=== PATIENT | female | born 1955 | race Caucasian/White ===

== ENCOUNTER 2016-07-30 11:11 | Outpatient (CLI) | payer BC ==
[2016-07-30 13:13] LABS: #Basophils 0.1 thou/uL (0.0-0.2); #Eosinphils 0.1 thou/uL (0.0-0.7); #Lymphocytes 2.1 thou/uL (1.20-3.40); #Monocytes 0.6 thou/uL (0.11-0.59); #Neutrophils 2.5 thou/uL (1.40-6.50); %Basophils 1.7 % (0.0-1.0); %Eosinophils 2.3 % (0.0-10.0); %Lymphocytes 38.8 % (21.0-51.0); Hematocrit 41.5 % (36.0-47.0); Mean Platelet Volume 7.7 fL (7.4-10.4); Red Blood Cell (RBC) Count 4.34 mill/uL (4.20-5.40); White Blood Cell (WBC) Count 5.3 thou/uL (4.8-10.8)
[2016-07-30 13:51] LABS: ALT (SGPT) 25 U/L (0-55); AST (SGOT) 27 U/L (5-34); Alkaline Phosphatase 68 U/L (40-150); Anion Gap 13 mmol/L (10-20); BUN (Urea Nitrogen) 9 mg/dL (9.8-20.1); Bilirubin, Total 0.6 mg/dL (0.2-1.2); Calc. Creatinine Clearance 0 mL/min (70-130); Carbon Dioxide 27 mmol/L (22-29); Chloride 107 mmol/L (98-107); Estimated GFR-MDRD 87; LDL Cholesterol, Calculated 126 mg/dL; Protein, Total 6.9 g/dL (6.0-8.3)
[2016-07-30 14:48] LABS: Bilirubin Negative (Negative); Blood, Urine Negative (Negative); Glucose, Urine (Dipstick) Negative (Negative); Ketone, Urine Negative (Negative); Nitrite Negative (Negative); Protein, Urine (Dipstick) Negative (Neg-Trace); Urobilinogen 0.2 mg/dL (0.2-1.0)
== END 2016-07-30 11:12 ==
LOC: NAVSJIPCSP 11:11
PROVIDERS: ATTEND Internal Medicine
DX: K21.9 Gastro-esophageal reflux disease without esophagitis (principal); R60.0 Localized edema; R63.5 Abnormal weight gain; E78.5 Hyperlipidemia, unspecified
CPT/HCPCS: 36415; 80053; 80061; 81003; 84443; 85025

== ENCOUNTER → 2016-09-29 | Emergency (ER) | payer BC ==
[~2016-09-29] MED LIST: Iopamidol 370 76% 100 ML VIAL ONE
[2016-09-29 03:06] LABS: Prothrombin Time 13.5 SEC (12.0-14.7)
[2016-09-29 03:08] LABS: Troponin I 0.025 ng/mL (< 0.028)
[2016-09-29 03:10] LABS: ALT (SGPT) 48 U/L (0-55); AST (SGOT) 85 U/L (5-34); Alkaline Phosphatase 88 U/L (40-150); Anion Gap 16 mmol/L (10-20); BUN (Urea Nitrogen) 17 mg/dL (9.8-20.1); Bilirubin, Total 0.4 mg/dL (0.2-1.2); Calc. Creatinine Clearance 0 mL/min (70-130); Calcium 9.3 mg/dL (7.8-10.44); Carbon Dioxide 25 mmol/L (22-29); Chloride 105 mmol/L (98-107); Estimated GFR-MDRD 78; Globulin 2.9 g/dL (2.4-3.5); Lipase 61 U/L (8-78)
[2016-09-29 03:11] LABS: Band 5 % (5-11); Hematocrit 40.9 % (36.0-47.0); Mean Platelet Volume 7.6 fL (7.4-10.4); Neutrophil 28 % (42-75); Red Blood Cell (RBC) Count 4.48 mill/uL (4.20-5.40); White Blood Cell (WBC) Count 7.9 thou/uL (4.8-10.8)
--- NOTE | 2016-09-29 07:58 | CT ---
PRELIMINARY REPORT/[facility]/EMERGENCY AFTER HOURS PROCEDURE: EXAM: CT Angiography Chest With Intravenous Contrast. CT Angiography Abdomen With Intravenous Contrast. 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 Coronal and sagittal reformatted images were created and reviewed. CONTRAST: 96 mL of ISOVUE 370 administered intravenously. COMPARISON: No relevant prior studies available. FINDINGS: VASCULATURE: Aorta: No acute findings. No aortic aneurysm. No dissection. Pulmonary arteries: No acute findings. No pulmonary embolism. Great vessels of aortic arch: No acute findings. No dissection. No occlusion or significant stenosis . Celiac trunk and mesenteric arteries: No acute findings. No occlusion or significant stenosis. Renal arteries: No acute findings. No occlusion or significant stenosis. CHEST: Lungs: Unremarkable. No mass. No consolidation. Pleural space: No significant effusion. No pneumothorax. Heart: Coronary arterial calcifications. No significant pericardial effusion. ABDOMEN: Liver: Normal. Gallbladder and bile ducts: Cholecystectomy. Biliary ductal prominence may be related. Common bile d uct measuring 10 mm. Mild intrahepatic biliary ductal dilatation. Pancreas: Normal. Spleen: Normal. Adrenals: Normal. Kidneys and ureters: Normal. Stomach and bowel: Gastric suture line. No evidence of obstruction. Contrast passes into the small b owel. Otherwise unremarkable. Intraperitoneal space: No significant fluid collection. No free air. CHEST and ABDOMEN: Bones/joints: No acute fracture. No dislocation. Soft tissues: Normal. Lymph nodes: Unremarkable. No enlarged lymph nodes. IMPRESSION: 1. No definite acute findings. 2. Mild biliary ductal dilatation, may be related to cholecystectomy. Thank you for allowing us to participate in the care of your patient. Dictated and Authenticated by: Michael Hernandez MD 09/29/2016 4:18 AM Central Time ([place] \T\ [place]) FINAL REPORT CT ANGIOGRAM OF THE CHEST WITH IV CONTRAST AND 3D POSTPROCESSING CT ANGIOGRAM OF THE ABDOMEN WITH IV CONTRAST AND 3D POSTPROCESSING: Date: 09/29/16 IMPRESSION: I agree with the preliminary report given by Dr. Michael Hernandez of [facility]. POS: [facility]
--- NOTE | 2016-09-29 08:07 | RAD ---
SINGLE VIEW OF CHEST: Date: 09/29/16 COMPARISON: 03/11/12. HISTORY: Chest pain. FINDINGS: Single view of the chest shows a normal sized cardiomediastinal silhouette. There is no evidence of consolidation, mass, or pleural effusion. Bone anchors are seen in the right humerus from prior righ t shoulder surgery. IMPRESSION: No evidence of acute cardiopulmonary disease. POS: [facility]
== END ==
LOC: NAV ERS 02:22
DX: I20.9 Angina pectoris, unspecified (principal); K21.9 Gastro-esophageal reflux disease without esophagitis
CPT/HCPCS: 71010; 71275; 80053; 82553; 83690; 83880; 84484; 85025; 85610; 93005

== ENCOUNTER 2016-10-28 12:01 | Outpatient (CLI) | payer BC | END 2016-10-28 12:02 | LOC: NAVSJIPCSP 12:01 | PROVIDERS: ATTEND Internal Medicine | DX: I25.118 Atherosclerotic heart disease of native coronary artery with other forms of angina pectoris (principal); E78.2 Mixed hyperlipidemia | CPT/HCPCS: 36415; 80061 ==

== ENCOUNTER 2017-02-25 10:50 | Outpatient (CLI) | payer BC ==
[2017-02-25 14:16] LABS: #Basophils 0.1 thou/uL (0.0-0.2); #Eosinphils 0.1 thou/uL (0.0-0.7); #Lymphocytes 2.5 thou/uL (1.20-3.40); #Monocytes 0.5 thou/uL (0.11-0.59); %Eosinophils 1.6 % (0.0-10.0); %Lymphocytes 40.4 % (21.0-51.0); %Neutrophils 49.1 % (42.0-75.0); Hemoglobin 13.9 g/dL (12.0-16.0); Mean Corpuscular HGB CONC 31.8 g/dL (32.0-36.0); Mean Corpuscular Hemoglobin 30.1 pg (27.0-31.0); Mean Corpuscular Volume 94.8 fl (81.0-99.0); Mean Platelet Volume 8.1 fL (7.4-10.4); Platelet Count 183 thou/uL (130-400); RBC Distribution Width 12.4 % (11.5-14.5); Red Blood Cell (RBC) Count 4.61 mill/uL (4.20-5.40); White Blood Cell (WBC) Count 6.1 thou/uL (4.8-10.8)
[2017-02-25 18:11] LABS: ALT (SGPT) 53 U/L (8-55); AST (SGOT) 49 U/L (5-34); Albumin 4.3 g/dL (3.5-5.0); Alkaline Phosphatase 62 U/L (40-150); Anion Gap 16 mmol/L (10-20); BUN (Urea Nitrogen) 13 mg/dL (9.8-20.1); Bilirubin, Direct 0.2 mg/dL (0.1-0.3); Bilirubin, Total 0.5 mg/dL (0.2-1.2); Calc. Creatinine Clearance 0 mL/min (70-130); Calcium 9.4 mg/dL (7.8-10.44); Carbon Dioxide 26 mmol/L (22-29); Cardiac Risk 2.3 (Less than 4.5); Chloride 104 mmol/L (98-107); Cholesterol 210 mg/dl (< 200 Desired); Estimated GFR-MDRD 73; Globulin 2.9 g/dL (2.4-3.5); Glucose 89 mg/dL (70-105); HDL Cholesterol 91 mg/dL (>60 Neg Risk); LDL Cholesterol, Calculated 107 mg/dL; Potassium 4.4 mmol/L (3.5-5.1); Protein, Total 7.2 g/dL (6.0-8.3); Sodium 142 mmol/L (136-145); Triglycerides 59 mg/dL (Less than 150)
[2017-02-25 18:32] LABS: Creatinine, Urine Less than 20.00 mg/dL (47-110); Microalbumin Urine Less than 1.0 mg/dL (0.5-50.0)
== END 2017-02-25 10:51 | disposition home or self-care (01) ==
LOC: NAVSJIPCSP 10:50
PROVIDERS: ATTEND Internal Medicine
DX: E78.2 Mixed hyperlipidemia (principal); N10 Acute pyelonephritis; I25.118 Atherosclerotic heart disease of native coronary artery with other forms of angina pectoris; Z79.899 Other long term (current) drug therapy
CPT/HCPCS: 36415; 80053; 80061; 80076; 82043; 85025; 87077; 87086; 87186

== ENCOUNTER 2017-04-06 09:29 | Outpatient (CLI) | payer BC ==
[2017-04-06 12:38] LABS: Cardiac Risk 2.1 (Less than 4.5)
== END 2017-04-06 09:30 | disposition home or self-care (01) ==
LOC: NAVSJIPCSP 09:29
PROVIDERS: ATTEND Internal Medicine
DX: E78.2 Mixed hyperlipidemia (principal)
CPT/HCPCS: 36415; 80061

== ENCOUNTER 2019-05-26 16:48 | Outpatient (CLI) | payer BC ==
--- NOTE | 2019-05-26 17:08 | RAD ---
EXAM: Single view of the abdomen HISTORY: Constipation COMPARISON: 09/23/2010 FINDINGS: Single view of the abdomen shows a nonspecific, nonobstructive bowel gas pattern. No signif icant stool retention is seen in the colon. No suspicious calcifications are seen. Post surgical changes are seen in the lumbosacral spine. Cholecystectomy clips are seen. IMPRESSION: Unremarkable exam
== END 2019-05-26 16:49 | disposition home or self-care (01) ==
LOC: NAV RAD 16:48
PROVIDERS: ATTEND Nurse Practitioner Adult Health
DX: K59.01 Slow transit constipation (principal)
CPT/HCPCS: 74018

== ENCOUNTER 2020-03-25 18:52 | Emergency (ER) | payer BC ==
[2020-03-25] MEDS ORDERED: Lidocaine 1% (PF) 30 ML VIAL ONE (19:38)
[2020-03-25] MEDS ORDERED: Boostrix 0.5 ML VIAL ONE (19:59)
[2020-03-25] MEDS ORDERED: Bacitracin 1 PK ONE (20:00)
== END 2020-03-25 20:12 | disposition home or self-care (01) ==
LOC: NAV ERS 18:52
DX: S61.411A Laceration without foreign body of right hand, initial encounter (principal); E78.5 Hyperlipidemia, unspecified; E78.00 Pure hypercholesterolemia, unspecified; Z23 Encounter for immunization; Z79.899 Other long term (current) drug therapy; W26.0XXA Contact with knife, initial encounter
CPT/HCPCS: 12001; 90471; 90715; J2001

== ENCOUNTER 2020-08-01 17:46 | Emergency (ER) | payer OTHER ==
[2020-08-02 08:07] LABS: SARS-CoV-2 MS2 Positive; SARS-CoV-2 N Gene Negative; SARS-CoV-2 S Gene Negative; SARS-CoV-2 by NAA Not Detected (NotDetected); SARS-CoV-2 orf1ab Negative
== END 2020-08-01 19:57 | disposition home or self-care (01) ==
LOC: NAV ERS 17:46
DX: J06.9 Acute upper respiratory infection, unspecified (principal); Z20.822 Contact with and (suspected) exposure to COVID-19; E78.5 Hyperlipidemia, unspecified; Z79.899 Other long term (current) drug therapy
CPT/HCPCS: 87081; 87430; 87635; 87804; 99283; U0003; U0005

== ENCOUNTER 2020-11-11 11:31 | Emergency (ER) | payer OTHER ==
[2020-11-11] MEDS ORDERED: Ondansetron PF 4 MG/2 ML Vial ONE (12:03)
[2020-11-11 12:11] LABS: #Basophils 0.1 thou/uL (0.0-0.2); #Eosinphils 0.1 thou/uL (0.0-0.7); #Lymphocytes 1.6 thou/uL (1.20-3.40); #Monocytes 0.6 thou/uL (0.11-0.59); #Neutrophils 5.9 thou/uL (1.40-6.50); %Eosinophils 1.4 % (0.0-10.0); %Lymphocytes 19.1 % (21.0-51.0); %Monocytes 6.7 % (0.0-10.0); %Neutrophils 71.8 % (42.0-75.0); Hemoglobin 13.2 g/dL (12.0-16.0); Mean Corpuscular HGB CONC 30.1 g/dL (32.0-36.0); Mean Corpuscular Hemoglobin 30.3 pg (27.0-31.0); Mean Platelet Volume 8.5 fL (7.4-10.4); Platelet Count 211 thou/uL (130-400); RBC Distribution Width 12.2 % (11.5-14.5); Red Blood Cell (RBC) Count 4.35 mill/uL (4.20-5.40); White Blood Cell (WBC) Count 8.2 thou/uL (4.8-10.8)
[2020-11-11 12:21] LABS: ALT (SGPT) 19 U/L (8-55); AST (SGOT) 21 U/L (5-34); Alkaline Phosphatase 75 U/L (40-110); Anion Gap 15 mmol/L (10-20); BUN (Urea Nitrogen) 17 mg/dL (9.8-20.1); Bilirubin, Total 0.4 mg/dL (0.2-1.2); Calc. Creatinine Clearance 0 mL/min (70-130); Calcium 9.1 mg/dL (7.8-10.44); Carbon Dioxide 23 mmol/L (23-31); Chloride 105 mmol/L (98-107); Globulin 3.1 g/dL (2.4-3.5); Glucose 146 mg/dL (80-115); Magnesium 1.8 mg/dL (1.6-2.6); Potassium 3.8 mmol/L (3.5-5.1); Protein, Total 7.1 g/dL (5.8-8.1); Sodium 139 mmol/L (136-145)
[2020-11-11] MEDS ORDERED: Sodium Chloride 0.9% 1,000 ML ONE (12:24)
[2020-11-11 12:53] LABS: Bilirubin Negative (Negative); Blood, Urine Negative (Negative); Clarity Clear (Clear); Glucose, Urine (Dipstick) Negative (Negative); Ketone, Urine Negative (Negative); Leukocyte Negative (Negative); Nitrite Negative (Negative); Protein, Urine (Dipstick) Negative (Neg-Trace); Urobilinogen 0.2 mg/dL (Less than 2)
[2020-11-11 12:54] LABS: Specific Gravity, Urine 1.005 (1.002-1.036)
[2020-11-11] MEDS ORDERED: Aspirin Chewable 81 MG TAB ONE (13:49)
[2020-11-11] MEDS ORDERED: Meclizine HCl 25 MG TAB ONE (13:49)
[2020-11-11 15:55] LABS: SARS-CoV-2 NAA Rapid Test Not Detected (NotDetected)
== END 2020-11-11 16:38 | disposition short-term general hospital (02) ==
LOC: NAV ERS 11:31
DX: R42 Dizziness and giddiness (principal); R11.0 Nausea; Z20.822 Contact with and (suspected) exposure to COVID-19; E78.5 Hyperlipidemia, unspecified; Z79.899 Other long term (current) drug therapy
CPT/HCPCS: 0240U; 70450; 71045; 80053; 81003; 83735; 83880; 84484; 85025; 93005; 94760; 96374; J2405; J7050

== ENCOUNTER 2021-03-08 14:44 | Emergency (ER) | payer OTHER | END 2021-03-08 16:05 | disposition home or self-care (01) | LOC: NAV ERS 14:44 | DX: S20.212A Contusion of left front wall of thorax, initial encounter (principal); S70.02XA Contusion of left hip, initial encounter; S50.312A Abrasion of left elbow, initial encounter; E78.5 Hyperlipidemia, unspecified; E78.00 Pure hypercholesterolemia, unspecified; Z79.82 Long term (current) use of aspirin; Z79.899 Other long term (current) drug therapy; W18.30XA Fall on same level, unspecified, initial encounter | CPT/HCPCS: 71250; 90471; 96372 ==

== ENCOUNTER 2023-08-18 08:55 | Outpatient (CLI) | payer OTHER | END 2023-08-18 08:56 | disposition home or self-care (01) | LOC: NAV RAD 08:55 | PROVIDERS: ATTEND Nurse Practitioner Family | DX: M25.571 Pain in right ankle and joints of right foot (principal) ==